=== PATIENT | female | born 1945 | race Caucasian/White ===

== ENCOUNTER → 2019-09-02 | Outpatient (CLI) | payer MEDICARE, OTHER ==
--- NOTE | 2019-09-08 15:54 | RAD ---
BILATERAL SCREENING MAMMOGRAM, 3-D History: Routine screening. Comparison: 08/08/2015, 08/25/2017. Technique: MLO and CC digital tomosynthesis (3D) images obtained. Radiologist reviewed these images on dedicated workstation. Findings: Breast Tissue Density B : There are scattered areas of fibroglandular density. The left MLO image is limited as it does not include the far posterior aspect of the left breast. The patient reportedly had a rash along the undersurface of the posterior left breast and could not tolerate optimal imaging. A new small masses present at the right upper outer breast approximately 3 cm from the nipple. It measures 0.7 cm diameter. At the mid to posterior left upper-outer breast, there is a focal asymmetry images more evident than on prior exams. This may be due to summation of breast parenchyma. This finding measures up to 2.1 cm diameter and is located approximately 11 cm from the nipple. No suspicious calcifications or distortion.. IMPRESSION: Spot compression bilaterally is recommended. Ultrasound bilaterally may be needed. Repeat attempt at imaging the far posterior left breast in the MLO projection is also recommended if the patient is able. BI-RADS Category 0: Incomplete: Need additional imaging evaluation. The images were reviewed with computer-aided detection. Patient information is entered into reminder system with a target due date for the next screening mammogram. Mammography is the most sensitive method for finding small breast cancers, but it does not detect them all and is not a substitute for careful clinical examination. A negative mammogram does not negate a clinically suspicious finding and should not result in delay in biopsying a clinically suspicious abnormality. "Our facility is accredited by the [employer] Mammography [employer]." Electronically signed by: Humberto Faith MD (09/08/2019 3:50 PM) [facility]
== END | disposition home or self-care (01) ==
LOC: MAMMO 12:51
PROVIDERS: ATTEND Family Medicine
DX: Z12.31 Encounter for screening mammogram for malignant neoplasm of breast (principal)
CPT/HCPCS: 77063; 77067

== ENCOUNTER → 2019-09-13 | Outpatient (CLI) | payer MEDICARE, OTHER ==
--- NOTE | 2019-09-13 14:08 | RAD ---
EXAM: 1. Bilateral 3-D digital diagnostic mammography. 2. Bilateral breast ultrasound. HISTORY: Indeterminate findings on mammographic screening. Additional imaging is requested. TECHNIQUE: Left MLO tomosynthesis and MLO/CC spot compression images were obtained. On the right, CC and MLO spot compression images were obtained. Sonography of the regions of interest was performed bilaterally. COMPARISON: 09/02/2019, 08/25/2017. COMPOSITION: B. There are scattered areas of fibroglandular density. FINDINGS: On the left, the focus of concern superolaterally resumes its prior appearance. It is reniform suggesting a lymph node. Sonographically, only parenchyma is identifiable in the left upper outer quadrant, suggesting that this is a benign parenchymal island. There is no suspicious finding on the left. On the right, the superolateral nodule of concern persists and is lobulated measuring 6.5 mm. Sonographically, this is seen as a cluster of small cysts consistent with apocrine metaplasia. There is no internal perfusion. It measures 6 x 3 x 3 mm. There is no suspicious sonographic finding. Coarse calcifications appear mammographically benign. BI-RADS CATEGORY: 2: Benign. RECOMMENDATION: 1. Routine screening mammography in one year. If mammography demonstrates dense breast tissue (heterogenously dense or extremely dense, category C or D), which could hide abnormalities, and if other risk factors for breast cancer have been identified, supplemental screening tests that may be suggested by the ordering physician may be of benefit. Dense breast tissue, in and of itself, is a relatively common condition. Therefore, this information is not provided to cause undue concern, but rather to raise awareness and to promote discussion with the referring physician regarding the presence of other risk factors, in addition to dense breast tissue. The results of this mammography examination is provided to the patient and referring physician. The patient should contact their referring physician if any questions or concerns exist regarding this report. PQRS compliance statement - Patient information was entered into a reminder system with a target due date for the next mammogram. "Our facility is accredited by the [employer] Mammography [employer]." Electronically signed by: Priscila Castro MD (09/13/2019 2:05 PM) [id number]
== END | disposition home or self-care (01) ==
LOC: MAMMO 12:35
PROVIDERS: ATTEND Family Medicine
DX: N60.01 Solitary cyst of right breast (principal); R92.1 Mammographic calcification found on diagnostic imaging of breast; R92.8 Other abnormal and inconclusive findings on diagnostic imaging of breast
CPT/HCPCS: 76641; 77066; G0279; 77062